=== PATIENT | female | born 1965 | race African-American/Black ===

== ENCOUNTER 2017-03-21 19:40 | Emergency (ER) | payer MEDICAID ==
[~2017-03-21] VITALS: Ht 160 cm; Wt 61.0 kg
[~2017-03-21 19:40] MED LIST: BENZ1TAB7 PO; RISP1 PO
[2017-03-21] MEDS ORDERED: TRAMADOL 50MG TABLET PO ONE (20:30)
[2017-03-21] MEDS ORDERED: KETOROLAC 60MG/2ML VIAL IM ONE (20:30)
[2017-03-21 23:00] VITALS: BP 128/69
== END 2017-03-21 23:19 | disposition home or self-care (01) ==
LOC: ER 21:49
DX: J95.01 Hemorrhage from tracheostomy stoma (principal); G89.29 Other chronic pain; M25.512 Pain in left shoulder; G40.909 Epilepsy, unspecified, not intractable, without status epilepticus; Y83.8 Other surgical procedures as the cause of abnormal reaction of the patient, or of later complication, without mention of misadventure at the time of the procedure; Y92.018 Other place in single-family (private) house as the place of occurrence of the external cause
CPT/HCPCS: 96372; 99283; J1885

== ENCOUNTER 2017-04-06 18:23 | Inpatient (IN) | payer MEDICAID ==
[~2017-04-06] VITALS: Ht 162.6 cm; Wt 70.3 kg
[2017-04-06] MEDS ORDERED: SODIUM CHLORIDE 0.9% 1,000 ML IV ONE (18:39)
[2017-04-06 19:19] LABS: HEMATOCRIT. 23.6 % (36.0-48.0); MEAN CORPUSCULAR HEMOGLOBIN 41.5 pg (28.0-32.0); MEAN CORPUSCULAR VOLUME 122.6 fL (81.0-99.0); MEAN PLATELET VOLUME 7.2 fl (7.4-10.4); PLATELET 104 x1000/uL (130-400); RED BLOOD CELL COUNT 1.93 mill/uL (4.2-5.4); RED CELL DISTRIBUTION WIDTH 30.1 % (11.6-14.6)
[2017-04-06 19:20] LABS: CHLORIDE 109 mEq/L (98-107)
[2017-04-06 19:25] LABS: AMMONIA 116 uMol/L (<32)
[2017-04-06 19:28] LABS: CARBON DIOXIDE 22 mEq/L (21-32); ETHANOL BLOOD < 10 mg/dL
[2017-04-06] MEDS ORDERED: MAGNESIUM 2 G PREMIX 50 ML IV ONE (19:30)
[2017-04-06 19:46] LABS: NUCLEATED RED BLOOD CELLS 4 /100 WBC
[2017-04-06 19:47] LABS: PLATELET ESTIMATE DECREASED
[2017-04-06] MEDS ORDERED: LORAZEPAM 2MG/ML CPJ ONE (20:50)
[2017-04-06] MEDS ORDERED: LEVETIRACETAM 1,000 MG in SODIUM CHLORIDE 0.9% 100 ML IV ONE (21:00)
[2017-04-06 22:32] LABS: CLARITY URINE CLEAR (CLEAR); COLOR URINE DARK YELLOW (YELLOW); GLUCOSE URINE NEGATIVE (NEGATIVE); KETONES URINE NEGATIVE (NEGATIVE); LEUKOCYTE ESTERASE URINE NEGATIVE (NEGATIVE); NITRITE URINE NEGATIVE (NEGATIVE); OCCULT BLOOD URINE TRACE (NEGATIVE); PROTEIN URINE NEGATIVE (NEGATIVE); SPECIFIC GRAVITY URINE 1.015 (1.005-1.030)
[2017-04-06 22:45] LABS: *AMPHETAMINES SCREEN URINE NEGATIVE (NEGATIVE); *BARBITURATES SCREEN URINE NEGATIVE (NEGATIVE); *BENZODIAZEPINES SCREEN URINE PRESUMTIVE POSITIVE (NEGATIVE); *COCAINE SCREEN URINE NEGATIVE (NEGATIVE); CANNABINOID URINE SCREEN NEGATIVE (NEGATIVE); METHADONE URINE SCREEN NEGATIVE (NEGATIVE); OPIATES URINE SCREEN PRESUMTIVE POSITIVE (NEGATIVE); PHENCYCLIDINE URINE SCREEN NEGATIVE (NEGATIVE)
[2017-04-06] MEDS ORDERED: LORAZEPAM 2MG/ML CPJ IV ONE (23:00)
[2017-04-07 03:00] VITALS: BP 107/44
[2017-04-07] MEDS ORDERED: DEXTROSE 50% WATER 50ML SYRINGE IV SCH (07:00)
[2017-04-07] MEDS ORDERED: ONDANSETRON HCL 4MG/2ML VIAL IV PRN (07:30)
[2017-04-07] MEDS ORDERED: ACETAMINOPHEN 650MG SUPP PR PRN (07:30)
[2017-04-07 08:00] VITALS: BP 94/40
[2017-04-07] MEDS: DEXT 5%/0.45% NACL KCL 10MEQ/L 1,000 ML IV SCH (10:26)
[2017-04-07 12:00] VITALS: BP 104/47
[2017-04-07] MEDS: LACTULOSE 20G/30ML UDC PO SCH ×2 (14:08→21:33)
[2017-04-07 16:00] VITALS: BP 106/66
[2017-04-07 20:05] VITALS: BP 111/66
[2017-04-08] VITALS (10 sets, daily range): BP systolic 86–120; BP diastolic 39–60
[2017-04-08] MEDS: DEXT 5%/0.45% NACL KCL 10MEQ/L 1,000 ML IV SCH ×2 (02:12→11:40)
[2017-04-08] MEDS: LACTULOSE 20G/30ML UDC PO SCH ×3 (05:21→23:39)
[2017-04-08 05:34] LABS: CARBON DIOXIDE 19 mEq/L (21-32); CHLORIDE 113 mEq/L (98-107)
[2017-04-08 05:41] LABS: AMMONIA 92 uMol/L (<32)
[2017-04-08 06:20] LABS: MEAN CORPUSCULAR VOLUME 122.8 fL (81.0-99.0); MEAN PLATELET VOLUME 8.4 fl (7.4-10.4); PLATELET 97 x1000/uL (130-400); RED BLOOD CELL COUNT 1.62 mill/uL (4.2-5.4); RED CELL DISTRIBUTION WIDTH 30.9 % (11.6-14.6)
[2017-04-08 06:30] LABS: HEMATOCRIT. 19.9 % (36.0-48.0); HEMOGLOBIN. 6.6 g/dL (12.0-16.0)
[2017-04-08 10:30] LABS: PLATELET ESTIMATE DECREASED
[2017-04-08] MEDS ORDERED: SORBITOL 70% SOLN 30ML PO NR ×2 (16:00→20:00)
[2017-04-08] MEDS: PANTOPRAZOLE SODIUM 40 MG/VIAL IV SCH (21:04)
[2017-04-09] VITALS (10 sets, daily range): BP systolic 91–121; BP diastolic 43–69
[2017-04-09] MEDS: LORAZEPAM 2MG/ML CPJ IV PRN ×2 (00:25→16:09)
[2017-04-09 05:15] LABS: INR 2.3; PARTIAL THROMBOPLASTIN TIME 34.4 sec (23.4-31.0); PROTHROMBIN TIME 23.9 sec (9.4-11.6)
[2017-04-09 05:19] LABS: BASOPHILS % 0.3 % (0.0-2.0); EOSINOPHILS % 2.1 % (0.0-5.0); HEMATOCRIT. 28.6 % (36.0-48.0); HEMOGLOBIN. 9.8 g/dL (12.0-16.0); LYMPHOCYTES % 16.5 % (20.0-50.0); MEAN CORPUSCULAR HEMOGLOBIN 37.3 pg (28.0-32.0); MEAN CORPUSCULAR VOLUME 108.5 fL (81.0-99.0); MONOCYTES % 7.2 % (2.0-8.0); NEUTROPHILS % 73.9 % (40.0-76.0); RED BLOOD CELL COUNT 2.64 mill/uL (4.2-5.4); RED CELL DISTRIBUTION WIDTH 32.7 % (11.6-14.6)
[2017-04-09] MEDS: LACTULOSE 20G/30ML UDC PO SCH ×3 (06:09→21:37)
[2017-04-09 06:13] LABS: CARBON DIOXIDE 19 mEq/L (21-32); CHLORIDE 117 mEq/L (98-107)
[2017-04-09 06:26] LABS: TOTAL IRON BINDING CAPACITY 103 ug/dL (250-450)
[2017-04-09 07:33] LABS: AMMONIA 85 uMol/L (<32)
[2017-04-09] MEDS ORDERED: SIMETHICONE 40 MG/0.6 ML 30ML ONE (07:46)
[2017-04-09] MEDS ORDERED: SODIUM CHLORIDE 0.9% 10ML VIAL ONE (07:46)
[2017-04-09] MEDS: PANTOPRAZOLE SODIUM 40 MG/VIAL IV SCH ×2 (10:38→21:37)
[2017-04-09] MEDS ORDERED: MIDAZOLAM HCL 5 MG/5 ML VIAL IV ONE (12:17)
[2017-04-09] MEDS ORDERED: FENTANYL CITRATE/PF 50MCG/ML 2ML VIAL IV ONE (12:18)
[2017-04-09] MEDS ORDERED: MIDAZOLAM HCL 5 MG/5 ML VIAL ONE (12:21)
[2017-04-09] MEDS ORDERED: FENTANYL CITRATE/PF 50MCG/ML 2ML VIAL ONE (12:22)
[2017-04-09 12:38] LABS: MEAN PLATELET VOLUME 8.3 fl (7.4-10.4); PLATELET 86 x1000/uL (130-400)
[2017-04-09] MEDS ORDERED: MAGNESIUM 2 G PREMIX 50 ML IV NR (21:00)
[2017-04-10] VITALS: BP 86/40
[2017-04-10] MEDS: DEXT 5%/0.45% NACL KCL 10MEQ/L 1,000 ML IV SCH ×2 (00:42→14:28)
[2017-04-10] MEDS: LORAZEPAM 2MG/ML CPJ IV PRN (03:52)
[2017-04-10 04:00] VITALS: BP 98/51
[2017-04-10 05:15] LABS: AMMONIA 110 uMol/L (<32)
[2017-04-10] MEDS: LACTULOSE 20G/30ML UDC PO SCH ×3 (05:33→20:51)
[2017-04-10 05:43] LABS: CARBON DIOXIDE 19 mEq/L (21-32); CHLORIDE 112 mEq/L (98-107); PHOSPHORUS 2.5 mg/dL (2.5-4.9)
[2017-04-10 06:16] LABS: HEMATOCRIT. 23.2 % (36.0-48.0); MEAN CORPUSCULAR VOLUME 110.7 fL (81.0-99.0); MEAN PLATELET VOLUME 7.6 fl (7.4-10.4); PLATELET 72 x1000/uL (130-400); RED CELL DISTRIBUTION WIDTH 33.6 % (11.6-14.6)
[2017-04-10 08:00] VITALS: BP 104/54
[2017-04-10] MEDS: PANTOPRAZOLE SODIUM 40 MG/VIAL IV SCH ×2 (08:28→20:50)
[2017-04-10 09:39] LABS: NUCLEATED RED BLOOD CELLS 1 /100 WBC
[2017-04-10 09:40] LABS: PLATELET ESTIMATE DECREASED
[2017-04-10 12:00] VITALS: BP 113/68
[2017-04-10] MEDS ORDERED: THIAMINE HCL 100MG TABLET PO NR (12:45)
[2017-04-10 14:24] LABS: HEPATITIS B SURFACE ANTIGEN NEGATIVE
[2017-04-10] MEDS: HYDROMORPHONE HCL/PF 2MG/ML CPJ IV PRN (14:33)
[2017-04-10 14:52] LABS: HEPATITIS B CORE AB IGM NEGATIVE
[2017-04-10 14:54] LABS: HEPATITIS A AB IGM NEGATIVE (NEGATIVE)
[2017-04-10] MEDS ORDERED: LORAZEPAM 2MG/ML CPJ IV PRN (15:30)
[2017-04-10 16:00] VITALS: BP 95/57
[2017-04-10] MEDS: SUCRALFATE 1G TABLET PO SCH (18:00)
[2017-04-10 20:00] VITALS: BP 105/61
[2017-04-11] VITALS (8 sets, daily range): BP systolic 103–120; BP diastolic 47–90
[2017-04-11] MEDS: SUCRALFATE 1G TABLET PO SCH ×4 (00:39→18:25)
[2017-04-11] MEDS: DEXT 5%/0.45% NACL KCL 10MEQ/L 1,000 ML IV SCH ×2 (03:58→21:29)
[2017-04-11] MEDS: LACTULOSE 20G/30ML UDC PO SCH ×3 (05:39→18:25)
[2017-04-11 05:44] LABS: INR 2.3; PARTIAL THROMBOPLASTIN TIME 36.7 sec (23.4-31.0); PROTHROMBIN TIME 23.9 sec (9.4-11.6)
[2017-04-11 05:48] LABS: HEMATOCRIT. 26.2 % (36.0-48.0); HEMOGLOBIN. 8.9 g/dL (12.0-16.0); MEAN CORPUSCULAR HEMOGLOBIN 38.6 pg (28.0-32.0); MEAN CORPUSCULAR VOLUME 114.2 fL (81.0-99.0); MEAN PLATELET VOLUME 9.2 fl (7.4-10.4); PLATELET 79 x1000/uL (130-400); RED CELL DISTRIBUTION WIDTH 32.9 % (11.6-14.6)
[2017-04-11 07:12] LABS: CARBON DIOXIDE 20 mEq/L (21-32); CHLORIDE 110 mEq/L (98-107)
[2017-04-11 07:23] LABS: PLATELET ESTIMATE DECREASED
[2017-04-11 07:28] LABS: AMMONIA 155 uMol/L (<32)
[2017-04-11 08:06] LABS: VITAMIN B12 SERUM > 2000 pg/mL (211-911)
[2017-04-11] MEDS: MULTIVITAMINS,THER W-MINERALS TABLET PO SCH (09:18)
[2017-04-11] MEDS: PANTOPRAZOLE SODIUM 40 MG/VIAL IV SCH ×2 (09:18→21:29)
[2017-04-11] MEDS: THIAMINE HCL 100MG TABLET PO SCH (09:18)
[2017-04-11] MEDS ORDERED: SODIUM BICARBONATE 4.2% 5 MEQ/10 ML DISP.SYRIN IV ONE (13:10)
[2017-04-11] MEDS ORDERED: LIDOCAINE HCL 1% 20ML VIAL (Pyxis) INJ ONE (13:10)
[2017-04-11] MEDS: HYDROMORPHONE HCL/PF 2MG/ML CPJ IV PRN (16:23)
[2017-04-12] VITALS (7 sets, daily range): BP systolic 105–120; BP diastolic 50–83
[2017-04-12] MEDS: LACTULOSE 20G/30ML UDC PO SCH ×5 (05:11→23:32)
[2017-04-12] MEDS: SUCRALFATE 1G TABLET PO SCH ×5 (05:11→23:32)
[2017-04-12 06:18] LABS: BASOPHILS % 0.3 % (0.0-2.0); EOSINOPHILS % 3.1 % (0.0-5.0); HEMATOCRIT. 25.2 % (36.0-48.0); HEMOGLOBIN. 8.6 g/dL (12.0-16.0); LYMPHOCYTES % 19.7 % (20.0-50.0); MEAN CORPUSCULAR HEMOGLOBIN 39.4 pg (28.0-32.0); MEAN CORPUSCULAR VOLUME 114.8 fL (81.0-99.0); MONOCYTES % 12.9 % (2.0-8.0); RED BLOOD CELL COUNT 2.19 mill/uL (4.2-5.4); RED CELL DISTRIBUTION WIDTH 33.1 % (11.6-14.6)
[2017-04-12 06:43] LABS: AMMONIA 131 uMol/L (<32)
[2017-04-12 06:45] LABS: CARBON DIOXIDE 18 mEq/L (21-32); CHLORIDE 113 mEq/L (98-107)
[2017-04-12 08:06] LABS: PLATELET ESTIMATE DECREASED
[2017-04-12 08:07] LABS: MEAN PLATELET VOLUME 9.4 fl (7.4-10.4); PLATELET 93 x1000/uL (130-400)
[2017-04-12] MEDS: DEXT 5%/0.45% NACL KCL 10MEQ/L 1,000 ML IV SCH ×2 (09:00→23:33)
[2017-04-12] MEDS: PANTOPRAZOLE SODIUM 40 MG/VIAL IV SCH ×2 (10:06→20:51)
[2017-04-12] MEDS: MULTIVITAMINS,THER W-MINERALS TABLET PO SCH (10:06)
[2017-04-12] MEDS: THIAMINE HCL 100MG TABLET PO SCH (10:07)
[2017-04-12] MEDS ORDERED: DOCUSATE SODIUM 250MG CAPSULE PO PRN (11:45)
[2017-04-12] MEDS ORDERED: METOCLOPRAMIDE HCL 10MG/2ML VIAL IV SCH (14:00)
[2017-04-12] MEDS: LORAZEPAM 2MG/ML CPJ IV PRN (20:53)
[2017-04-13] VITALS (14 sets, daily range): BP systolic 106–120; BP diastolic 57–68
[2017-04-13] MEDS: LACTULOSE 20G/30ML UDC PO SCH ×4 (05:16→23:19)
[2017-04-13] MEDS: SUCRALFATE 1G TABLET PO SCH ×4 (05:17→23:19)
[2017-04-13 06:46] LABS: AMMONIA 139 uMol/L (<32)
[2017-04-13 07:14] LABS: BASOPHILS % 0.6 % (0.0-2.0); EOSINOPHILS % 2.8 % (0.0-5.0); HEMOGLOBIN. 7.6 g/dL (12.0-16.0); LYMPHOCYTES % 20.3 % (20.0-50.0); MEAN CORPUSCULAR VOLUME 112.6 fL (81.0-99.0); MONOCYTES % 12.7 % (2.0-8.0); NEUTROPHILS % 63.6 % (40.0-76.0); RED BLOOD CELL COUNT 1.95 mill/uL (4.2-5.4); RED CELL DISTRIBUTION WIDTH 31.8 % (11.6-14.6)
[2017-04-13 08:10] LABS: MEAN PLATELET VOLUME 8.4 fl (7.4-10.4)
[2017-04-13 08:11] LABS: PLATELET 64 x1000/uL (130-400)
[2017-04-13 08:12] LABS: CARBON DIOXIDE 20 mEq/L (21-32); CHLORIDE 113 mEq/L (98-107)
[2017-04-13] MEDS: THIAMINE HCL 100MG TABLET PO SCH (08:18)
[2017-04-13] MEDS: MULTIVITAMINS,THER W-MINERALS TABLET PO SCH (08:18)
[2017-04-13] MEDS: PANTOPRAZOLE SODIUM 40 MG/VIAL IV SCH ×2 (08:18→20:40)
[2017-04-13] MEDS ORDERED: MAGNESIUM SULFATE 3 GM in DEXT 5% WATER 100 ML IV SCH (10:00)
[2017-04-13] MEDS: DEXT 5%/0.45% NACL KCL 10MEQ/L 1,000 ML IV SCH (10:43)
[2017-04-13] MEDS: HYDROMORPHONE HCL/PF 2MG/ML CPJ IV PRN (13:07)
[2017-04-13] MEDS: LORAZEPAM 2MG/ML CPJ IV PRN (21:09)
[2017-04-14] VITALS (9 sets, daily range): BP systolic 111–131; BP diastolic 56–73
[2017-04-14] MEDS: DEXT 5%/0.45% NACL KCL 10MEQ/L 1,000 ML IV SCH ×3 (04:15→23:06)
[2017-04-14] MEDS: SUCRALFATE 1G TABLET PO SCH ×3 (05:38→15:12)
[2017-04-14] MEDS: LACTULOSE 20G/30ML UDC PO SCH ×5 (05:38→23:05)
[2017-04-14 06:35] LABS: AMMONIA 144 uMol/L (<32)
[2017-04-14 06:44] LABS: HEMATOCRIT. 26.1 % (36.0-48.0); MEAN CORPUSCULAR HEMOGLOBIN 37.1 pg (28.0-32.0); PLATELET 71 x1000/uL (130-400); RED BLOOD CELL COUNT 2.41 mill/uL (4.2-5.4); RED CELL DISTRIBUTION WIDTH 31.9 % (11.6-14.6)
[2017-04-14] MEDS: THIAMINE HCL 100MG TABLET PO SCH (08:28)
[2017-04-14] MEDS: MULTIVITAMINS,THER W-MINERALS TABLET PO SCH ×2 (08:28→09:00)
[2017-04-14] MEDS: PANTOPRAZOLE SODIUM 40 MG/VIAL IV SCH ×2 (08:28→21:07)
[2017-04-14 08:43] LABS: CARBON DIOXIDE 22 mEq/L (21-32); CHLORIDE 113 mEq/L (98-107)
[2017-04-14 13:23] LABS: PLATELET ESTIMATE DECREASED
[2017-04-14] MEDS ORDERED: KCL 20MEQ/100ML PREMIX 100 ML IV SCH (16:00)
[2017-04-14] MEDS ORDERED: MAGNESIUM 2 G PREMIX 50 ML IV SCH (16:00)
[2017-04-14] MEDS: SUCRALFATE 1 G/10 ML UDC PO SCH ×2 (18:16→23:05)
[2017-04-14] MEDS: LORAZEPAM 2MG/ML CPJ IV PRN (21:59)
[2017-04-15] VITALS (8 sets, daily range): BP systolic 105–137; BP diastolic 52–78
[2017-04-15] MEDS: HYDROMORPHONE HCL/PF 2MG/ML CPJ IV PRN (04:53)
[2017-04-15] MEDS: SUCRALFATE 1 G/10 ML UDC PO SCH ×4 (06:51→23:58)
[2017-04-15] MEDS: LACTULOSE 20G/30ML UDC PO SCH ×4 (06:51→23:58)
[2017-04-15 08:05] LABS: HEMOGLOBIN. 10.1 g/dL (12.0-16.0); MEAN CORPUSCULAR HEMOGLOBIN 37.6 pg (28.0-32.0); MEAN CORPUSCULAR VOLUME 108.8 fL (81.0-99.0); RED BLOOD CELL COUNT 2.68 mill/uL (4.2-5.4)
[2017-04-15] MEDS: THIAMINE HCL 100MG TABLET PO SCH (08:10)
[2017-04-15] MEDS: MULTIVITAMINS,THER W-MINERALS TABLET PO SCH (08:10)
[2017-04-15] MEDS: PANTOPRAZOLE SODIUM 40 MG/VIAL IV SCH ×2 (08:10→23:58)
[2017-04-15 08:18] LABS: HEMATOCRIT. 29.1 % (36.0-48.0)
[2017-04-15 09:18] LABS: CARBON DIOXIDE 22 mEq/L (21-32); CHLORIDE 112 mEq/L (98-107)
[2017-04-15 09:25] LABS: AMMONIA 106 uMol/L (<32)
[2017-04-15 10:10] LABS: PLATELET ESTIMATE DECREASED
[2017-04-15 10:13] LABS: PLATELET 85 x1000/uL (130-400)
[2017-04-15] MEDS: DEXT 5%/0.45% NACL KCL 10MEQ/L 1,000 ML IV SCH (17:07)
[2017-04-15] MEDS: LORAZEPAM 2MG/ML CPJ IV PRN (23:58)
[2017-04-16] VITALS (9 sets, daily range): BP systolic 104–130; BP diastolic 56–76
[2017-04-16 06:20] LABS: BASOPHILS % 0.8 % (0.0-2.0); EOSINOPHILS % 4.6 % (0.0-5.0); HEMATOCRIT. 26.9 % (36.0-48.0); HEMOGLOBIN. 9.2 g/dL (12.0-16.0); LYMPHOCYTES % 25.4 % (20.0-50.0); MEAN CORPUSCULAR HEMOGLOBIN 37.5 pg (28.0-32.0); MEAN CORPUSCULAR VOLUME 109.6 fL (81.0-99.0); NEUTROPHILS % 57.2 % (40.0-76.0); RED BLOOD CELL COUNT 2.45 mill/uL (4.2-5.4); RED CELL DISTRIBUTION WIDTH 30.1 % (11.6-14.6)
[2017-04-16 06:22] LABS: AMMONIA 101 uMol/L (<32)
[2017-04-16] MEDS: LACTULOSE 20G/30ML UDC PO SCH (06:39)
[2017-04-16] MEDS: SUCRALFATE 1 G/10 ML UDC PO SCH ×2 (06:40→12:51)
[2017-04-16] MEDS: DEXT 5%/0.45% NACL KCL 10MEQ/L 1,000 ML IV SCH (06:40)
[2017-04-16 06:51] LABS: CARBON DIOXIDE 22 mEq/L (21-32); CHLORIDE 113 mEq/L (98-107)
[2017-04-16] MEDS: PANTOPRAZOLE SODIUM 40 MG/VIAL IV SCH (08:41)
[2017-04-16] MEDS: MULTIVITAMINS,THER W-MINERALS TABLET PO SCH (08:41)
[2017-04-16] MEDS: THIAMINE HCL 100MG TABLET PO SCH (08:41)
[2017-04-16] MEDS ORDERED: MAGNESIUM 2 G PREMIX 50 ML IV SCH (09:00)
[2017-04-16] MEDS ORDERED: MAGNESIUM SULFATE 3 GM in DEXT 5% WATER 96 ML IV SCH (10:00)
[2017-04-16] MEDS: LORAZEPAM 2MG/ML CPJ IV PRN (11:45)
[2017-04-16] MEDS ORDERED: LACTULOSE 20G/30ML UDC PO SCH (12:00)
[2017-04-16 13:58] LABS: PLATELET 81 x1000/uL (130-400)
[2017-04-16] MEDS ORDERED: RIFAXIMIN 550 MG TABLET PO SCH (21:00)
== END 2017-04-16 17:42 | DRG 53 ==
LOC: ER 18:23 → 5EST 22:52 → ENRESERV 04-07 01:27 → 5EST 04-11 09:05
PROVIDERS: ADMIT Hospitalist; ATTEND Hospitalist
PROC: 0DB68ZX Excision of Stomach, Via Natural or Artificial Opening Endoscopic, Diagnostic (ICD-10-PCS; 2017-04-09)
PROC: 0DJD8ZZ Inspection of Lower Intestinal Tract, Via Natural or Artificial Opening Endoscopic (ICD-10-PCS; 2017-04-09)
PROC: 30233N1 Transfusion of Nonautologous Red Blood Cells into Peripheral Vein, Percutaneous Approach (ICD-10-PCS; 2017-04-09)
PROC: B5181ZA Fluoroscopy of Superior Vena Cava using Low Osmolar Contrast, Guidance (ICD-10-PCS; principal; 2017-04-11)
PROC: 02HV33Z Insertion of Infusion Device into Superior Vena Cava, Percutaneous Approach (ICD-10-PCS; 2017-04-11)
PROC: B548ZZA Ultrasonography of Superior Vena Cava, Guidance (ICD-10-PCS; 2017-04-11)
DX: G40.909 Epilepsy, unspecified, not intractable, without status epilepticus (principal); G93.41 Metabolic encephalopathy; E43 Unspecified severe protein-calorie malnutrition; Z93.0 Tracheostomy status; K26.9 Duodenal ulcer, unspecified as acute or chronic, without hemorrhage or perforation; D68.4 Acquired coagulation factor deficiency; I11.9 Hypertensive heart disease without heart failure; I67.82 Cerebral ischemia; K76.6 Portal hypertension; K92.1 Melena; D69.6 Thrombocytopenia, unspecified; F20.9 Schizophrenia, unspecified; K70.30 Alcoholic cirrhosis of liver without ascites; K72.90 Hepatic failure, unspecified without coma; F10.10 Alcohol abuse, uncomplicated; D53.9 Nutritional anemia, unspecified; D75.89 Other specified diseases of blood and blood-forming organs; J44.9 Chronic obstructive pulmonary disease, unspecified; K31.9 Disease of stomach and duodenum, unspecified; K44.9 Diaphragmatic hernia without obstruction or gangrene; K64.8 Other hemorrhoids; K80.20 Calculus of gallbladder without cholecystitis without obstruction; D63.8 Anemia in other chronic diseases classified elsewhere; Z68.26 Body mass index [BMI] 26.0-26.9, adult
CPT/HCPCS: 36415; 36569; 70450; 71010; 76700; 76937; 77001; 80048; 80053; 80076; 80305; 80307; 80329; 81001; 82105; 82140; 82270; 82607; 82728; 82746; 82962; 83540; 83550; 83735; 84100; 85025; 85610; 85730; 86705; 86709; 86803; 86850; 86900; 86920; 87340; 87493; 88305; 88312; 88313; 92610; 93005; 93970; 96361; 96365; 96366; 96368; 97163; 97530; 99152; 99153; 99285; A4216; A6261; C1725; C9113; G0482; J1170; J1953; J2060; J2250; J3010; J3475; J3480; J3490; J7030; J7040; J7050; J7060; P9016; A4315